=== PATIENT | male | born 1980 | race Caucasian/White ===

== ENCOUNTER 2017-04-21 12:48 | Emergency (ER) | payer SELFPAY ==
[2017-04-21 12:49] VITALS: BP 139/76; PULSE 69; RESP 16; TEMP 36.6; O2SAT 99
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
--- NOTE | 2017-04-21 13:09 | EKG12_ITS ---
Test Reason : Blood Pressure : / mmHG Vent. Rate : 062 BPM Atrial Rate : 062 BPM P-R Int : 118 ms QRS Dur : 086 ms QT Int : 386 ms P-R-T Axes : 050 062 040 degrees QTc Int : 391 ms Normal sinus rhythm Normal ECG Confirmed by MAURICE BABB MD ([id number]), assignment editor FADUMO NIXON ([id number]) on 04/24/2017 3:00:37 PM Referred By: NIRAV Confirmed By:MAURICE BABB MD
[2017-04-21 13:45] LABS: Absolute Lymphocyte Count 1.66 X10^3/ul (0.83-4.51); Absolute Neutrophil Count 5.5 X10^3/uL (2.0-7.7); Basophil# 0.03 X10^3/uL; Basophil% 0.4 % (0-1); Eosinophil# 0.11 X10^3/uL; Eosinophils% 1.4 % (0-5); Hematocrit 48.8 % (40-54); Hemoglobin 16.3 g/dl (13.0-16.5); Lymphocyte # 1.66 X10^3/ul (4.0); Lymphocyte % 21.1 % (19-41); Mean Corp Hgb Conc 33.4 g/gl (32-36); Mean Corpuscular Hgb 30.3 pg (27.0-32.0); Mean Corpuscular Volume 90.7 fL (80-94); Mean Platelet Vol. 10.2 fl (6.2-12.0); Monocyte# 0.53 X10^3/uL; Monocyte% 6.7 % (0-10); Neutrophil # 5.54 X10^3/uL (2.7-7.7); Neutrophil % 70.3 % (47-70); Platelet Count 187 K/mm3 (150-450); RBC Distribution Width CV 14.3 % (11.6-14.6); RBC Distribution Width SD 46.9 fl (35.1-43.9); Red Blood Count 5.38 M/mm3 (4.6-6.2); White Blood Count 7.9 K/mm3 (4.4-11.0)
[2017-04-21 13:46] LABS: POSITIVE COUNT NO; POSITIVE DIFFERENTIAL NO; POSITIVE MORPHOLOGY NO
[2017-04-21 13:46] LABS: Amphetamine Urine VISTA NEGATIVE (<1000 ng/mL); Barbiturate Urine VISTA NEGATIVE (< 200 ng/mL); Benzodiazepine Urine VISTA NEGATIVE (< 200 ng/mL); Cocaine Urine VISTA NEGATIVE (< 300 ng/mL); Ecstacy Urine VISTA NEGATIVE (< 500 ng/mL); Methadone Urine VISTA NEGATIVE (< 300 ng/mL); PCP Urine VISTA NEGATIVE (< 25 ng/mL); THC Urine VISTA NEGATIVE (< 50 ng/mL); Vista UDS pH Range 6
[2017-04-21 13:57] LABS: Bacteria 0 SEEN /hpf (None Seen); Mucous, Urine 0 SEEN /hpf (<or=2+); Red Blood Cells-Urine 0 SEEN /hpf (0-5)
[2017-04-21 14:04] LABS: AST(SGOT) 15 U/L (15-37); Alanine Aminotransfer ALT/SGPT 26 U/L (16-61); Albumin, Serum 4.1 g/dL (3.2-5.0); Alkaline Phosphatase 61 U/L (45-117); Anion Gap 5 (5-15); BUN 10 mg/dL (7-18); BUN/Creat Ratio 8.8 RATIO (10-20); Bilirubin, Direct 0.13 mg/dL (0.00-0.30); Chloride 107 mmol/L (98-107); Creatinine, Serum 1.13 mg/dL (0.70-1.30); EST Glomerular Filtration Rate 78 mL/min (>60); Est Glom Filt Rate - Afr Amer 95 mL/min (>60); Estimated Creatinine Clearance 86.64 ml/min; Globulin 3.2 g/dL (2.2-4.2); Glucose 98 mg/dL (74-106); Potassium 4.5 mmol/L (3.5-5.1); Protein, Total 7.3 g/dL (6.4-8.2); Sodium Level 142 mmol/L (136-145)
[2017-04-21 14:07] LABS: Color, Urine Yellow (Yellow); Glucose, Dipstick Normal (Normal); Ketone-Dipstick Negative (Negative); Leukocyte Esterase-Dipstick 25 /ul (Negative); Nitrite-Dipstick Negative (Negative); Occult Blood-Urine Negative /ul (Negative); Protein-Dipstick Negative (Negative); Specific Gravity, Urine 1.015 (1.002-1.030); Urine Bilirubin Dipstick Negative (Negative); Urine Clarity Sl. Cloudy (Clear); Urine Urobilinogen Normal (Normal)
[2017-04-21 14:13] VITALS: BP 112/63; PULSE 65; RESP 15; O2SAT 99
--- NOTE | 2017-04-21 14:23 | ED.RN ---
PER PT REQUEST CLOTHING AND BELONGINGS GIVEN TO JUANA WHO TOOK THEM HOME. PT DOES HAVE CELL PHONE AND [employer] TEAM MEMBER AT BEDSIDE.
[2017-04-21 14:31] LABS: Squamous Epithelial Cells - UA 0-5 SEEN /hpf (0-5); White Blood Cells 0-5 SEEN /hpf (0-5)
[2017-04-21 15:24] VITALS: BP 119/65; PULSE 57; RESP 16; O2SAT 99
[2017-04-21 16:34] VITALS: BP 124/80; PULSE 72; RESP 18; O2SAT 100
[2017-04-22] VITALS (7 sets, daily range): BP systolic 130–132; BP diastolic 70–91; PULSE 53–76; RESP 14–18; O2SAT 97–100
--- NOTE | 2017-04-22 04:13 | ED.RN ---
NEW NICOTINE PATCH PLACED. OLD ONE FELL OFF TWO HOURS AGO.
--- NOTE | 2017-04-22 07:36 | ED.RN ---
NICOTINE PATCH REMOVED BEFORE LEAVING.
== END 2017-04-22 07:37 ==
PROVIDERS: Emergency Provider Emergency Medicine
DX: R45.851 Suicidal ideations (principal); F32.9 Major depressive disorder, single episode, unspecified; F17.200 Nicotine dependence, unspecified, uncomplicated
CPT/HCPCS: 80048; 80076; 80307; 80320; 81001; 82375; 85025; 93005; 99284; G0480

== ENCOUNTER 2018-08-15 09:07 | Emergency (ER) | payer SELFPAY ==
[2018-08-15] VITALS (14 sets, daily range): BP systolic 100–137; BP diastolic 71–94; PULSE 61–74; RESP 15–18; TEMP 36.4; O2SAT 97–99; BMI 20.9
--- NOTE | 2018-08-15 09:24 | EKG12_ITS ---
Test Reason : [facility] Blood Pressure : / mmHG Vent. Rate : 072 BPM Atrial Rate : 072 BPM P-R Int : 124 ms QRS Dur : 084 ms QT Int : 400 ms P-R-T Axes : 057 023 043 degrees QTc Int : 438 ms Normal sinus rhythm with sinus arrhythmia Normal ECG Confirmed by PATTI HERNANDEZ, ANNETTA ([id number]), editor city RASHID HOGAN ([id number]) on 08/20/2018 1:31:15 PM Referred By: JESSICA Confirmed By:ANNETTA ARMSTRONG MD
[2018-08-15 09:48] LABS: Absolute Lymphocyte Count 1.03 X10^3/ul (0.83-4.51); Absolute Neutrophil Count 7.2 X10^3/uL (2.0-7.7); Basophil# 0.02 X10^3/uL; Basophil% 0.2 % (0-1); Eosinophil# 0.02 X10^3/uL; Eosinophils% 0.2 % (0-5); Hemoglobin 15.7 g/dl (13.0-16.5); Lymphocyte # 1.03 X10^3/ul (4.0); Lymphocyte % 11.8 % (19-41); Mean Corp Hgb Conc 34.1 g/gl (32-36); Mean Platelet Vol. 10.3 fl (6.2-12.0); Monocyte# 0.46 X10^3/uL; Monocyte% 5.3 % (0-10); Neutrophil # 7.18 X10^3/uL (2.7-7.7); Neutrophil % 82.4 % (47-70); Platelet Count 171 K/mm3 (150-450); RBC Distribution Width CV 13.6 % (11.6-14.6); RBC Distribution Width SD 43.7 fl (35.1-43.9); Red Blood Count 5.23 M/mm3 (4.6-6.2); White Blood Count 8.7 K/mm3 (4.4-11.0)
[2018-08-15 09:49] LABS: POSITIVE COUNT NO; POSITIVE DIFFERENTIAL NO; POSITIVE MORPHOLOGY NO
[2018-08-15 10:03] LABS: ALB/GLOB Ratio 1.5 RATIO (0.9-2.4); AST(SGOT) 12 U/L (15-37); Alanine Aminotransfer ALT/SGPT 21 U/L (16-61); Albumin, Serum 4.4 g/dL (3.2-5.0); Alkaline Phosphatase 53 U/L (45-117); Anion Gap 7 (5-15); BUN 10 mg/dL (7-18); BUN/Creat Ratio 8.3 RATIO (10-20); Calcium,Total 9.4 mg/dL (8.5-10.1); Chloride 108 mmol/L (98-107); Creatinine, Serum 1.21 mg/dL (0.70-1.30); EST Glomerular Filtration Rate 72 mL/min (>60); Est Glom Filt Rate - Afr Amer 87 mL/min (>60); Estimated Creatinine Clearance 76.14 ml/min; Glucose 138 mg/dL (74-106); Potassium 3.4 mmol/L (3.5-5.1); Protein, Total 7.4 g/dL (6.4-8.2); Sodium Level 140 mmol/L (136-145)
[2018-08-15 10:07] LABS: Alcohol, Blood (Medical)-Serum < 3.0 mg/dL
[2018-08-15 10:20] LABS: Amphetamine Urine VISTA NEGATIVE (<1000 ng/mL); Barbiturate Urine VISTA NEGATIVE (< 200 ng/mL); Benzodiazepine Urine VISTA NEGATIVE (< 200 ng/mL); Cocaine Urine VISTA NEGATIVE (< 300 ng/mL); Ecstacy Urine VISTA NEGATIVE (< 500 ng/mL); Methadone Urine VISTA NEGATIVE (< 300 ng/mL); PCP Urine VISTA NEGATIVE (< 25 ng/mL); THC Urine VISTA NEGATIVE (< 50 ng/mL); Vista UDS pH Range 6
--- NOTE | 2018-08-15 10:25 | CM.ED ---
SOCIAL WORK REVIEWED PATIENT'S CASE. PATIENT IN WITH SUICIDAL IDEATION. PATIENT IS SELF PAY. CRISIS TO EVALUATE ONCE MEDICALLY CLEARED. SALMA WYATT, SUPERINTENDENT RECREATION, BINDING BENCH WORKER.
--- NOTE | 2018-08-15 10:27 | ED.RN ---
EVERARDO WITH CRISIS NOTIFIED THAT PT NEEDS TO BE SEEN. SHE STATED THEY WILL CALL WHEN SOMEONE HIS HEADING THIS WAY
--- NOTE | 2018-08-15 10:44 | ED.RN ---
PORFIRIO WITH CRISIS; SOMEONE SHOULD HE HERE WITHIN THE HOUR
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
--- NOTE | 2018-08-15 12:56 | ED.RN ---
PER DORIS WITH COUNSELING CENTER THEY ARE WORKING ON PLACEMENT AT [facility]
[2018-08-15] MEDS: Acetaminophen 500 MG Tablet 1000 MG PO (14:26)
--- NOTE | 2018-08-15 16:06 | ED.RN ---
pt requesting to speak with physician. pt reports he has a relative that is dying and he needs to leave. pt informed of pink slip process and that it is unlikely to change. pt remains calm. reports tingling in left fa. dr. durand informed. left radial and left ulnar pulses palpable +2/2. pt has sensation on check of cap refill. cap refill immediate.
[2018-08-16] VITALS (8 sets, daily range): BP systolic 112–113; BP diastolic 72–76; PULSE 70–73; RESP 14–17; TEMP 36.5; O2SAT 96–98
--- NOTE | 2018-08-16 01:44 | ED.RN ---
PT ASKED IF HE COULD GET SOMETHING FOR RESTLESSNESS, DR. GASTELUM MADE AWARE, NO ORDERS AT THIS TIME. GAVE THE PT PILLOW, WILL CONTINUE TO MONITOR.
--- NOTE | 2018-08-16 03:47 | NURSING ---
ACCEPTED TO [facility] BY DR. TOBIN [phone] [phone] REPORT
--- NOTE | 2018-08-16 07:01 | NURSING ---
CALLED [facility] FOR TRANSPORT.
--- NOTE | 2018-08-16 07:49 | ED.RN ---
PT GAVE [facility] SLICENSE AND DEBT CARD TO [facility]IVAL
== END 2018-08-16 07:50 ==
PROVIDERS: Emergency Provider Emergency Medicine
DX: S51.812A Laceration without foreign body of left forearm, initial encounter (principal); X78.8XXA Intentional self-harm by other sharp object, initial encounter; Y93.89 Activity, other specified; Y92.9 Unspecified place or not applicable; Z72.0 Tobacco use
CPT/HCPCS: 12002; 36415; 80053; 80307; 80320; 85025; 93005; 99285; J7030; G0480